=== PATIENT | male | born 1985 | race Hispanic/Latino ===

== ENCOUNTER → 2019-12-03 | Day surgery (SDC) | payer BC, OTHER ==
[~2019-12-03] MED LIST: ACETAMINOPHEN 1000 MG/100 ML IV ONE; BUPIVACAINE HCL 0.5% INJ 30 ML VIAL INJ ONE; CEFAZOLIN SOD 1 GM/NS 50ML 50 ML IV ONE; DEXAMETHASONE SOD PHOS INJ 4 MG/ML VIAL ONE; FENTANYL CITRATE/PF 100MCG/2 ML INJ ONE; HYDROMORPHONE 1MG/1ML INJ ONE; KETOROLAC TROMETHAMINE 30 MG/ML VIAL ONE; LIDOCAINE HCL 2% LOCAL INJ 5 ML SDV VIAL INJ ONE; MEPERIDINE HCL INJ 25 MG/ML VIAL ONE; MIDAZOLAM HCL 2 MG/2 ML VIAL ONE; ONDANSETRON HCL INJ 2MG/ML 2ML 2 MG/ML VIAL ONE; PROPOFOL IV EMULSION 10 MG/ML 20 ML VIAL ONE; SEVOFLURANE INHAL SOLN 250 ML PEN BTL ONE
[2019-12-03 09:30] VITALS: BP 146/97
--- NOTE | 2019-12-03 09:43 | Operative Report ---
DATE OF PROCEDURE: 12/03/2019 SURGEON: Dora Regalado DPM PREOPERATIVE DIAGNOSIS: Left ankle syndesmosis rupture. POSTOPERATIVE DIAGNOSIS: Left ankle syndesmosis rupture. PLANNED PROCEDURE: Left ankle repair of syndesmosis. EMERGENCY SERVICES DISPATCHER: Mary Bowers DPM ([place]) ANESTHESIA: General with a postoperative block consisting of 20 mL of 0.2% Marcaine plain. HEMOSTASIS: Pneumatic thigh tourniquet set at 350 mmHg for a total time of approximately 75 minutes. MATERIALS: One [employer] offset syndesmosis placed, two 2.7 mm screws measuring 16 mm and 14 mm nonlocking, one 3.5 mm x 42 mm nonlocking syndesmosis screw, one [employer] SYNCHFIX, 2-0 Vicryl, 3-0 Vicryl, 4-0 nylon. ESTIMATED BLOOD LOSS: Less than 10 mL. PATHOLOGY: None. PROCEDURE NOTE: The patient was seen in the preoperative waiting room. The correct procedure and site were identified. The patient was brought to the operating room and placed on the operating table in the supine position. General anesthesia was initiated at this time. A well-padded pneumatic tourniquet was placed about the left thigh. The left foot, ankle, and leg were then scrubbed, prepped, and draped in the usual aseptic manner. Left foot, ankle, and leg was exsanguinated with an Esmarch bandage and a pneumatic thigh tourniquet was inflated to 350 mmHg for a total time of approximately 75 minutes. Attention was directed to the lateral aspect of the patient's left ankle where a 5 cm linear incision made directly over the lateral malleolus. Incision was carried to the subcutaneous tissues them from deep or underling structures. All vital and neurovascular structures were identified, retracted medially and laterally, and all bleeders were cauterized or ligated as deemed necessary. Next, the incision was carried down to the level of the fibula where the periosteum was retracted to allow for good visualization of the fibula. Utilizing the offset syndesmosis repair plate from [employer] was placed along the lateral aspect of the fibula and temporary fixated and confirmed via intraoperative fluoroscopy to be in the correct position. Two 2.7 mm screws measuring 14 mm and 16 mm were placed on the distal aspect of the fibula to allow for proper fixation of the fibular plate. Next two techniques of manipulation, reduction and distraction, the ankle syndesmosis was reduced and temporarily fixated utilizing a pelvic reduction clamp. Next, per manufacture protocol, one [employer] SYNCHFIX wire was placed through the plate. The fixation site is stable. Next, one 3.5 mm x 42 mm nonlocking syndesmotic screw was placed through the fibula and distal tibia. Reduction was not noted via intraoperative fluoroscopy. The wound was then copiously irrigated with sterile saline. Capsule and deep tissue were reapproximated with 2-0 Vicryl, subcutaneous tissue with 3-0 Vicryl. The skin was closed using a running interlocking stitch with 4-0 nylon to the lateral side and simple interrupted sutures to the stab incisions on the medial side. The incision sites were then dressed with Adaptic, 4x4s, Kerlix, Webril, posterior splint, 4-inch Jaya wrap, and a 6-inch Jaya wrap. The patient tolerated the procedure and anesthesia well. The patient was transferred to the postoperative recovery room with vital signs stable and vascular status intact. The patient was monitored there for short period of time before being sent home with the following written and oral instructions. 1. Keep the dressing clean, dry, intact. 2. The patient is to be nonweightbearing to the left lower extremity to avoid any ambulation until being seen in the office. 3. The patient was given the office number and instructed to contact us if any problems arise. AUBREE Ivory/ROHINI /[id number]
== END | disposition home or self-care (01) ==
LOC: OR 05:00
PROVIDERS: ATTEND Podiatrist Foot & Ankle Surgery
DX: S93.432A Sprain of tibiofibular ligament of left ankle, initial encounter (principal); Z11.59 Encounter for screening for other viral diseases
CPT/HCPCS: 27829; 87635; C1713 ×4; J0131; J0690; J1100; J1170; J1885; J2001; J2175; J2250; J2405; J2704; J3010; 76000

== ENCOUNTER → 2020-02-03 | Day surgery (SDC) | payer BC, OTHER ==
[~2020-02-03] MED LIST changes: -ACETAMINOPHEN 1000 MG/100 ML IV ONE; -HYDROMORPHONE 1MG/1ML INJ ONE; -MEPERIDINE HCL INJ 25 MG/ML VIAL ONE; +NEOSTIGMINE 1 MG/ML 10ML VIAL ONE
--- NOTE | 2020-02-03 08:00 | Operative Report ---
DATE OF PROCEDURE: 02/03/2020 SURGEON: Dora Regalado DPM PREOPERATIVE DIAGNOSES: 1. Ruptured syndesmosis. 2. Painful hardware. POSTOPERATIVE DIAGNOSES: 1. Ruptured syndesmosis. 2. Painful hardware. PLANNED PROCEDURES: Repair of syndesmosis with removal of syndesmotic screw with 1. Repair of syndesmosis. 2. Removal of syndesmotic screw. ANESTHESIA: General with a postoperative block consisting of 15 mL 0.5% Marcaine plain. HEMOSTASIS: Pneumatic ankle tourniquet set at 350 mmHg for a total time of approximately 20 minutes. ESTIMATED BLOOD LOSS: Less than 10 mL. PATHOLOGY: None. MATERIALS: One [employer] SYNCHFIX suture #5, 3-0 Vicryl, 3-0 nylon, and 4-0 nylon. PROCEDURE NOTE: The patient was seen in the preoperative waiting room. The correct procedure and site were identified. The patient was brought into the operating room and placed on the operating table in the supine position. General anesthesia was initiated. At this time, a well-padded pneumatic tourniquet was placed about the patient's left thigh. The left foot, ankle, and leg was then scrubbed, prepped, and draped in the usual aseptic manner. The left foot, ankle, and leg was then exsanguinated with an Esmarch bandage and the pneumatic thigh tourniquet was inflated to 350 mmHg for a total time of approximately 20 minutes. Attention was directed to the lateral aspect of the patient's left ankle where a previous incision site was noted. Utilizing a #15 blade, a linear incision was made directly over the previous incision. It should be noted that a moderate amount of scar tissue was noted and was debrided and passed off to the back table. The dissection was carried down to the level of plate. All vital neurovascular structures were identified retracted medially and laterally. The inferior aspect of the plate was noted and the syndesmotic screw was noted to be in the 3rd hole of the plate, which was removed with a [employer] screw. Then passed off to the back table. Next, utilizing intraoperative fluoroscopy, the guidewire for the syndesmotic SYNCHFIX was drilled through the same hole as a screw to the medial aspect of the tibia and confirmed to be in correct position and location via intraoperative fluoroscopy. Next, a pelvic reduction forceps was used to reduce the syndesmosis and confirmed to be in good anatomical alignment via intraoperative fluoroscopy. Next, per manufacture protocol, the SYNCHFIX was placed through the drill hole and tied in a square knot fashion on the lateral aspect of the fibula. Both wounds were then copiously irrigated with sterile saline. Deep tissues reapproximated with 3-0 Vicryl, and the skin was closed using simple interrupted sutures with 3-0 nylon and 4-0 nylon. The incision site was then dressed with Adaptic, 4x4s, Kerlix, Jaya wrap, and a CAM walker boot. The patient tolerated the procedure and anesthesia well. The patient was transferred to the postoperative recovery room with vital signs stable and vascular status intact. The patient was monitored there for a short period time before being sent home with the following written and oral instructions. 1. Keep the dressing clean, dry, and intact. 2. The patient is to remain nonweightbearing in a Cam walker boot to avoid any ambulation until being seen in the office. 3. The patient is given office number and instructed to contact us if any problems should arise. AUBREE Ivory/ROHINI /[id number]
[2020-02-03 08:05] VITALS: BP 127/96
== END | disposition home or self-care (01) ==
LOC: OR 05:05
PROVIDERS: ATTEND Podiatrist Foot & Ankle Surgery
DX: T84.84XA Pain due to internal orthopedic prosthetic devices, implants and grafts, initial encounter (principal); S93.432A Sprain of tibiofibular ligament of left ankle, initial encounter; Y83.8 Other surgical procedures as the cause of abnormal reaction of the patient, or of later complication, without mention of misadventure at the time of the procedure; Z01.812 Encounter for preprocedural laboratory examination; Z11.59 Encounter for screening for other viral diseases
CPT/HCPCS: 20680; 27829; 88300; C1713; J0690; J1100; J1885; J2001; J2250; J2405; J2704; J3010; U0002; J2710